=== PATIENT | male | born 1980 | race Caucasian/White ===

== ENCOUNTER 2019-09-09 06:40 | Emergency (ER) | payer MEDICAID ==
[~2019-09-09] VITALS: Ht 190.5 cm; Wt 108.9 kg
--- NOTE | 2019-09-09 06:40 | NUR ---
BIBA TAKEN TO BED #5
[2019-09-09 06:42] VITALS: BP 160/80
--- NOTE | 2019-09-09 06:43 | NUR ---
39 YO M BIBA FOR C/C OF SI. PT STATES HE HAS BEEN OFF OF HIS PSYCH MEDS SEROQUEL AND PROZAC X2 MONTHS DUE TO PT BEING HOMELESS FOR 1.5 MONTHS. PT STATES HE HAS BEEN EXPERIENCING AUDIBLE AND VISUAL HALLUCINATIONS TO KILL HIMSELF. STATES HE HAS BEEN SEEING ROPES AND HIS PLAN IS TO "HANG HIMSELF UNDER THE PIER." STATES HE HAS BEEN HEARING VOICES TELLING HIM "TO EAT A BBQ SEAGULL." PT STATES HE HAS BEEN USING ALCOHOL AND IV METH, CLAIMS HE HAS BEEN USING DIRTY/USED NEEDLES. PT STATES HE IS "IN PSYCHOSIS BECAUSE HE HASNT SLEPT IN TWO DAYS." PT DENIES PAIN, N/V/D, FEVER, COUGH, SOB. PT PLACED IN GOWN. SI PRECAUTIONS IN PLACE. BED LOCKED AND IN LOWEST POSITION. NKA MED HX: BIPOLAR, DEPRESSION RX:SEROQUEL, PROZAC (UNCOMPLIANT) Addendum: 09/09/19 at 0654 by [email or web address] 39 YO M BIBA FOR C/C OF SI. PT WAS FOUND ON THE STREETS, PD NOT AT SCENE. PT STATES HE HAS BEEN OFF OF HIS PSYCH MEDS SEROQUEL AND PROZAC X2 MONTHS DUE TO PT BEING HOMELESS FOR 1.5 MONTHS. PT STATES HE HAS BEEN EXPERIENCING AUDIBLE AND VISUAL HALLUCINATIONS TO KILL HIMSELF. STATES HE HAS BEEN SEEING ROPES AND HIS PLAN IS TO "HANG HIMSELF UNDER THE PIER." STATES HE HAS BEEN HEARING VOICES TELLING HIM "TO EAT A BBQ SEAGULL." PT STATES HE HAS BEEN USING ALCOHOL AND IV METH, CLAIMS HE HAS BEEN USING DIRTY/USED NEEDLES. PT STATES HE IS "IN PSYCHOSIS BECAUSE HE HASNT SLEPT IN TWO DAYS." PT DENIES PAIN, N/V/D, FEVER, COUGH, SOB. PT PLACED IN GOWN. SI PRECAUTIONS IN PLACE. BED LOCKED AND IN LOWEST POSITION. NKA MED HX: BIPOLAR, DEPRESSION RX:SEROQUEL, PROZAC (UNCOMPLIANT)
--- NOTE | 2019-09-09 06:50 | NUR ---
PT ENCOURAGED TO PROVIDE URINE SAMPLE IN BEDSIDE URINAL. UNABLE TO VOID AT THIS TIME.
--- NOTE | 2019-09-09 06:52 | NUR ---
TELEPSYCH INITIATED PER DR. ANDERSON
--- NOTE | 2019-09-09 06:53 | NUR ---
LAB AT BEDSIDE
[2019-09-09 07:18] LABS: BASOPHILS % (AUTO) 0.5 % (0.0-2.0); EOSINOPHILS # (AUTO) 0.1 K/uL (0-0.4); EOSINOPHILS % (AUTO) 1.4 % (0.0-4.0); HEMATOCRIT 49.4 % (36-52); LYMPHOCYTES # (AUTO) 2.2 K/uL (2.0-11.5); LYMPHOCYTES % (AUTO) 22.4 % (20.5-51.1); MEAN CORPUSCULAR HEMOGLOBIN 31 pg (27-31); MEAN CORPUSCULAR HGB CONC 35 g/dL (33-37); MEAN CORPUSCULAR VOLUME 90.3 fL (80-94); MONOCYTES # (AUTO) 1.4 K/uL (0.8-1.0); MONOCYTES % (AUTO) 14.1 % (1.7-9.3); NEUTROPHILS # (AUTO) 6.1 K/uL (1.8-7.7); NEUTROPHILS % (AUTO) 61.6 % (42.2-75.2); PLATELET COUNT (AUTO) 245 K/uL (140-450); RED BLOOD CELL COUNT(AUTO) 5.47 MIL/uL (4.20-6.10); RED CELL DISTRIBUTION WIDTH 13.1 % (11.6-13.7); WHITE BLOOD COUNT (AUTO) 9.9 K/uL (4.8-10.8)
--- NOTE | 2019-09-09 07:19 | NUR ---
REPORT GIVEN TO THEO MONROY. TRANSFER OF CARE AT THIS TIME.
[2019-09-09] MEDS ORDERED: OLANZapine 5 MG ODT SL ONE ×2 (07:25→16:20)
--- NOTE | 2019-09-09 07:25 | NUR ---
RECEIVED REPORT FROM THEO CAO. PT RESTING IN BED, SAFTEY PRECAUTIONS IN PLACE. NO NEW NEEDS AT THIS TIME.
--- NOTE | 2019-09-09 07:45 | NUR ---
PT SPEAKING WITH TELEPSYCH AT BEDSIDE
[2019-09-09 07:47] LABS: ALBUMIN 4.3 g/dL (3.4-5.0); ANION GAP 14.7 (8-16); ASPARTATE AMINOTRANSFERASE 37 U/L (15-37); CARBON DIOXIDE 27.1 mmol/L (21-32); CHLORIDE 103 mmol/L (98-107); CREATININE 1.1 mg/dL (0.6-1.3); GFR ARICAN-AMERICAN 96 mL/min (>90); GLUCOSE 126 mg/dL (74-106); POTASSIUM 3.8 mmol/L (3.5-5.1); SODIUM SERUM 141 mmol/L (136-145); TOTAL BILIRUBIN 2.3 mg/dL (0.0-1.0); UREA NITROGEN, BLOOD 24 mg/dL (7-18)
[2019-09-09 07:49] LABS: ACETAMINOPHEN < 0.5 ug/ml (10-30); SALICYLATE < 2.8 mg/dL (2.8-20.0)
--- NOTE | 2019-09-09 08:02 | NUR ---
PT STILL UNABLE TO URINATE.
--- NOTE | 2019-09-09 09:03 | NUR ---
PT AMBULATED TO RESTROOM WITH STEADY GAIT, URINE COLLECTED AND HANDED TO LAB
--- NOTE | 2019-09-09 09:05 | NUR ---
COVID SWAB COLLECTED AND SENT TO LAB
[2019-09-09 09:31] LABS: BARBITURATE, URINE NEGATIVE ng/ml (NEG <=200); BENZODIAZEPINE, URINE NEGATIVE ng/mL (NEG <=200); CANNABINOID, URINE POS ng/mL (NEG <=50); COCAINE, URINE POS ng/mL (NEG <=300); OPIATE, URINE POS ng/mL (NEG <=2000); PHENCYCLIDINE SCREEN,URINE NEGATIVE ng/mL (NEG <=25)
[2019-09-09 09:41] LABS: APPEARANCE,URINE CLEAR (CLEAR); BILIRUBIN,URINE 1+ (NEGATIVE); BLOOD, URINE NEGATIVE (NEGATIVE); COLOR,URINE YELLOW (YELLOW); LEUKOCYTE ESTERASE ,URINE NEGATIVE (NEGATIVE); NITRITE, URINE NEGATIVE (NEGATIVE); UGLUCOSE NEGATIVE (NEGATIVE)
[2019-09-09 10:01] LABS: RBC,URINE 0-5 /HPF (0-5); WBC,URINE 0-5 /HPF (0-5)
--- NOTE | 2019-09-09 10:01 | NUR ---
[place] [employer] BEDSIDE EVALUATING PATIENT
--- NOTE | 2019-09-09 11:45 | NUR ---
PT RESTING IN BED, NO NEW REQUESTS AT THIS TIME.
--- NOTE | 2019-09-09 13:21 | NUR ---
PT ASLEEP IN BED. INFORMED LUNCH IS HERE, DOES NOT WISH TO EAT RIGHT NOW. NO NEW NEEDS AT THIS TIME.
--- NOTE | 2019-09-09 14:40 | NUR ---
PT SITTING UP IN BED, CALM & QUIET. NO NEW NEEDS AT THIS TIME
--- NOTE | 2019-09-09 16:15 | NUR ---
[facility] RECIEVED PTS PACKET HOWEVER THE 5150 HOLD IS NOT IN PKT CALLED AND SPOKE TO LEE WHO STATES SHE WILL FAX TO CALL CENTER AWAITING 5150 AT THIS TIME
[2019-09-09] MEDS ORDERED: LORazepam 1 MG TAB PO ONE (16:20)
--- NOTE | 2019-09-09 17:30 | NUR ---
PT RECEIVED DINNER TRAY, IS EATING.
--- NOTE | 2019-09-09 18:53 | NUR ---
Called facility and spoke with Tory/RN. I wanted to clarify the patients name vs Kenneth. She verified with patient and he stated it is not Cooper. Tory is aware and will alert the PD to come and redo the hold as it is written as Kenneth. Nurse is aware that we will be awaiting the updated hold to continue bed placement for continuity of care.
--- NOTE | 2019-09-09 18:55 | NUR ---
CALLED KIRAN MARCANO TO HAVE ANOTHER OFFICER COME OUT TO CORRECT THE SPELLING OF THE PTS NAME. PER TABBY AT THE DEPARTMENT, SHE ENTERED ANOTHER CALL FOR AN OFFICER TO COME OUT.
--- NOTE | 2019-09-09 19:42 | NUR ---
PT ENDORSEMENT GIVEN BY ELIANA VENEGAS. ASSUMED PT CARE THIS TIME.
--- NOTE | 2019-09-09 20:21 | NUR ---
PT IN BED ASLEEP. VISIBLE CHEST RISE AND FALL. BED LOWEST AND LOCKED, RAILS X 2 .
--- NOTE | 2019-09-09 21:46 | NUR ---
PT IN BED ASLEEP. VISIBLE CHEST RISE AND FALL. NO FURTHER NEEDS AT THIS TIME. SITTER AT BEDSIDE.
--- NOTE | 2019-09-09 23:11 | NUR ---
ASLEEP IN BED. NO FURTHER NEEDS AT THIS TIME. VISIBLE CHEST RISE AND FALL. BED LOWEST AND LOCKED, RAILS X 2
--- NOTE | 2019-09-09 23:12 | NUR ---
Aliza called back to confirm that updated hold was received. Patient is awaiting Covid result prior to being transferred to any psychiatric care facility. Intake information was sent to the following facilities to review. [facility]/ [facility]/ [facility]/ [facility]/ [facility]/ [facility]/ [facility]/ [facility] Will keep facility informed of any updates
--- NOTE | 2019-09-10 | NUR ---
pt in bed asleep. no further needs this time. visible chest rise and fall. bed lowest and locked. rails x 2. sitter at bedside.
--- NOTE | 2019-09-10 01:10 | NUR ---
requested food. pt provided with a sandwich and liquids. no further needs at this time. sitter at bedside.
--- NOTE | 2019-09-10 07:12 | NUR ---
PT ENDORSED TO SHAQUILLE VENEGAS. TRANSFER OF CARE AT THIS TIME.
--- NOTE | 2019-09-10 07:19 | NUR ---
PATIENT ELOPED FROM FACILITY. DISCHARGE INSTRUCTIONS NOT GIVEN TO PATIENT. DR. MATTHEW NOTIFIED. KIRAN MARCANO NOTIFIED PT ELOPED FROM ER.
[2019-09-10] MEDS ORDERED: MIDAZOLAM 2 MG/2 ML VIAL IM ONE (07:40)
[2019-09-10] MEDS ORDERED: HALOPERIDOL IM 5 MG/ML VIAL IM ONE (07:40)
--- NOTE | 2019-09-10 07:40 | NUR ---
PT WALKED BACK INTO ER WITH KIRAN MARTINEZ, STATES "IM HUNGRY, I WANTED TO GET SOMETHING TO EAT".
--- NOTE | 2019-09-10 07:50 | NUR ---
[place] [employer] AT BEDSIDE WITH PT. BREAKFAST TRAY PLACED AT BEDSIDE.
--- NOTE | 2019-09-10 11:05 | NUR ---
PT AWAKE AND ALERT, ASKING FOR FOOD, TWO MILK CARTONS PLACED AT BEDSIDE FOR PT.
--- NOTE | 2019-09-10 13:21 | NUR ---
[facility] still aware of patient. Will continue to seek placement
--- NOTE | 2019-09-10 13:25 | NUR ---
Patient still pending Covid results. Will wait for results before placement. Facilities want Covid results before reviewing
--- NOTE | 2019-09-10 14:00 | NUR ---
PT IN BED ASLEEP. VISIBLE CHEST RISE AND FALL. BED LOWEST AND LOCKED, RAILS X 2 .
[2019-09-10] MEDS ORDERED: OLANZapine 5 MG ODT PO ONE (16:55)
--- NOTE | 2019-09-10 18:37 | NUR ---
Patient still pending Covid. Need results before placement
--- NOTE | 2019-09-10 19:11 | NUR ---
RECEIVED REPORT FROM THEO CORBIN FOR CONTINUATION OF CARE.
--- NOTE | 2019-09-10 19:28 | NUR ---
PT ASLEEP IN BED, RR EVEN AND UNLABORED, NO NEW CONCERNS AT THIS TIME. BED IN LOWEST POSITION, SIDE RAIL UP X1. WILL CONTINUE TO MONITOR. SITTER AT BEDSIDE.
--- NOTE | 2019-09-11 01:40 | NUR ---
PT ASLEEP, NO NEW REQUEST AT THIS TIME.
--- NOTE | 2019-09-11 02:39 | NUR ---
PT ASLEEP, NO NEW REQUEST AT THIS TIME.
--- NOTE | 2019-09-11 03:52 | NUR ---
PT ASLEEP, CHEST RISE AND FALL NOTED. NO NEW CONCERNS AT THIS TIME. BED IN LOWEST POSITION, SIDE RAIL UP X1. SITTER AT BEDSIDE. WILL CONTINUE TO MONITOR.
--- NOTE | 2019-09-11 04:52 | NUR ---
PT REFUSING VITAL SIGNS TO BE TAKEN.
[2019-09-11] MEDS ORDERED: ZOLPIDEM 10 MG TAB PO ONE (05:25)
--- NOTE | 2019-09-11 06:13 | NUR ---
PT ASLEEP, RR EVEN AND UNLABORED. NO NEW REQUESTS AT THIS TIME. BED IN LOWEST POSITION, SIDE RAIL UP X1. WILL CONTINUE TO MONITOR.
--- NOTE | 2019-09-11 06:24 | NUR ---
[facility] continuing to monitor pt notes. Pt has been referred to various facilities for waitlist. Unable to locate placement without covid results. Will continue to monitor for result of covid swab and relay results to facilities accordingly.
--- NOTE | 2019-09-11 07:20 | NUR ---
Report received from THEO Cowart. Transfer care at this time.
--- NOTE | 2019-09-11 08:58 | NUR ---
Pt has been medically cleared and taken off from [address].
--- NOTE | 2019-09-11 09:21 | NUR ---
Patient given written and verbal discharge instructions and verbalizes understanding. Given copies of tests performed during visit. Patient is awake, alert and oriented. Ambulatory with steady gait. Refuses offer of skilled nursing placement. Given list of available shelters, [facility] substance abuse, and consuling resources in surrounding areas. Addendum: 09/11/19 at 0922 by MED yuki pass provided to patient.
[2019-09-11 09:22] VITALS: BP 122/81
== END 2019-09-11 09:21 | disposition home or self-care (01) ==
LOC: MED 06:40 → EEVIPCON 06:40 → MED 09-11 09:21
DX: F29 Unspecified psychosis not due to a substance or known physiological condition (principal); R45.851 Suicidal ideations; F32.9 Major depressive disorder, single episode, unspecified; F17.200 Nicotine dependence, unspecified, uncomplicated; F14.90 Cocaine use, unspecified, uncomplicated; F15.90 Other stimulant use, unspecified, uncomplicated; F12.90 Cannabis use, unspecified, uncomplicated; F11.90 Opioid use, unspecified, uncomplicated
CPT/HCPCS: 36415; 80053; 80305; 81001; 85025; 96372; 99285; G0480; G0482; J1630; J2250; U0003